=== PATIENT | female | born 1970 | race Caucasian/White ===

== ENCOUNTER → 2018-08-14 | Outpatient (CLI) | payer BC ==
--- NOTE | 2018-08-14 15:14 | KCIC ---
Bilateral digital screening mammograms with 3-D tomosynthesis: Reason for examination: Routine screening. Comparison is made to previous studies dated 05/17/2014 and 04/06/2013. Bilateral mammograms in CC and oblique projections were obtained with 2-D imaging and 3-D tomosynthesis imaging on a Siemens Inspiration unit and reviewed on the workstation. Interpretation was made with the benefit of CAD. The skin and nipples show no abnormalities. No abnormal axillary lymph nodes are seen. The breast parenchyma shows scattered fatty and fibroglandular density. (Breast density: Category B.) There continue to be small parenchymal densities in the right breast which are stable. There are no new dominant masses, suspicious calcifications or architectural distortion. Benign calcifications are present. Impression: No evidence of malignancy. Recommend routine screening. BI-RAD Category 2: Benign. "Our facility is accredited by the [employer] Mammography Program." This patient's information has been entered into a reminder system for the patient to be notified with the results of her examination and a target date for the next mammogram. Electronically signed by: Nai Jha MD (08/14/2018 3:09 PM) [id number]
== END | disposition home or self-care (01) ==
LOC: KCIC MAMMO 12:27
PROVIDERS: ATTEND Nurse Practitioner Family
DX: Z12.31 Encounter for screening mammogram for malignant neoplasm of breast (principal)
CPT/HCPCS: 77063; 77067

== ENCOUNTER 2020-07-01 19:08 | Inpatient (IN) | payer BC ==
[~2020-07-01] VITALS: Ht 157.5 cm; Wt 79.5 kg
--- NOTE | 2020-07-01 19:13 | PHYS DOC ---
Past Medical History Additional Past Medical Histor: ibs Smoking Status: Never Smoker Alcohol Use: Rarely General Adult EDM: Chief Complaint: CHEST PAIN HPI: HPI: Patient is a 50 year old female who arrives with a chief complaint of epigastric and right upper quadrant pain. Patient describes sharp, stabbing epigastric and right upper quadrant pain that radiates to her back. Pain is worse with eating and breathing. Patient describes some shortness of breath and nausea. Patient has any fever, chills. Pain currently 4 out of 10 but gets up to 8 out of 10 at times Review of Systems: Review of Systems: Constitutional: Denies fever or chills. [] Eyes: Denies change in visual acuity. [] HENT: Denies nasal congestion or sore throat. [] Respiratory: Denies cough but has had shortness of breath. [] Cardiovascular: Denies chest pain or edema. [] GI: Complains of abdominal pain with nausea but no vomiting, bloody stools or diarrhea. [] : Denies dysuria. [] Musculoskeletal: Complains of back pain but no joint pain. [] Integument: Denies rash. [] Neurologic: Denies headache, focal weakness or sensory changes. [] Endocrine: Denies polyuria or polydipsia. [] Lymphatic: Denies swollen glands. [] Psychiatric: Denies depression or anxiety. [] Heart Score: HEART Score for Chest Pain: HEART Score for Chest Pain Response (Comments) Value History Slighlty/Non-Suspicious 0 ECG Normal 0 Age >45 - < 65 1 Risk Factors No Risk Factors 0 Total 1 Risk Factors: Risk Factors: DM, Current or recent (<one month) smoker, HTN, HLP, family history of CAD, obesity. Risk Scores: Score 0 - 3: 2.5% MACE over next 6 weeks - Discharge Home Score 4 - 6: 20.3% MACE over next 6 weeks - Admit for Clinical Observation Score 7 - 10: 72.7% MACE over next 6 weeks - Early Invasive Strategies Current Medications: Current Medications Ondansetron HCl (Zofran) 4 mg 1X ONCE IVP Last administered on 07/01/20at 19:29; Start 07/01/20 at 19:30; Stop 07/01/20 at 19:31; Status DC Morphine Sulfate (Morphine Sulfate) 4 mg 1X ONCE IV Last administered on 07/01/20at 19:30; Start 07/01/20 at 19:30; Stop 07/01/20 at 19:31; Status DC Hydromorphone HCl (Dilaudid) 1 mg 1X ONCE IVP Last administered on 07/01/20at 21:13; Start 07/01/20 at 21:15; Stop 07/01/20 at 21:16; Status DC Levofloxacin/ Dextrose 150 ml @ 100 mls/hr 1X ONCE IV Last administered on 07/01/20at 21:23; Start 07/01/20 at 21:30; Stop 07/01/20 at 22:59 Levofloxacin/ Dextrose 150 ml @ As Directed STK-MED ONCE IV ; Start 07/01/20 at 21:17; Stop 07/01/20 at 21:17; Status DC Ondansetron HCl (Zofran) 4 mg PRN Q8HRS PRN IV NAUSEA/VOMITING; Start 07/01/20 at 21:30; Stop 07/02/20 at 21:29; Status UNV Morphine Sulfate (Morphine Sulfate) 4 mg PRN Q2HR PRN IV PAIN; Start 07/01/20 at 21:30; Stop 07/02/20 at 21:29; Status UNV Sodium Chloride 1,000 ml @ 125 mls/hr Q8H IV ; Start 07/01/20 at 21:30; Stop 07/02/20 at 21:29; Status UNV Physical Exam: PE: Constitutional: Well developed, well nourished, mild distress due to pain, non- toxic appearance. [] HENT: Normocephalic, atraumatic, bilateral external ears normal, no trismus, nose normal. [] Eyes: PERRLA, EOMI, conjunctiva normal, no discharge. [] Neck: Normal range of motion, no tenderness, supple, no stridor. [] Cardiovascular:Heart rate regular rhythm, no murmur [] Lungs & Thorax: Bilateral breath sounds clear to auscultation [] Abdomen: Bowel sounds normal, soft, no tenderness, no masses, no pulsatile masses. [] Skin: Warm, dry, no erythema, no rash. [] Back: No tenderness, no CVA tenderness. [] Extremities: No tenderness, no cyanosis, no clubbing, ROM intact, no edema. [] Neurologic: Alert and oriented X 3, normal motor function, normal sensory function, no focal deficits noted. [] Psychologic: Affect normal, judgement normal, mood normal. [] Current Patient Data: Labs: Laboratory Tests Test 07/01/20 19:18 07/01/20 19:50 White Blood Count 10.4 x10^3/uL Red Blood Count 4.27 x10^6/uL Hemoglobin 12.2 g/dL Hematocrit 36.3 % Mean Corpuscular Volume 85 fL Mean Corpuscular Hemoglobin 29 pg Mean Corpuscular Hemoglobin Concent 34 g/dL Red Cell Distribution Width 13.6 % Platelet Count 378 x10^3/uL Neutrophils (%) (Auto) 54 % Lymphocytes (%) (Auto) 36 % Monocytes (%) (Auto) 7 % Eosinophils (%) (Auto) 2 % Basophils (%) (Auto) 1 % Neutrophils # (Auto) 5.6 x10^3/uL Lymphocytes # (Auto) 3.7 x10^3/uL Monocytes # (Auto) 0.8 x10^3/uL Eosinophils # (Auto) 0.2 x10^3/uL Basophils # (Auto) 0.1 x10^3/uL Sodium Level 138 mmol/L Potassium Level 4.0 mmol/L Chloride Level 100 mmol/L Carbon Dioxide Level 25 mmol/L Anion Gap 13 Blood Urea Nitrogen 14 mg/dL Creatinine 0.8 mg/dL Estimated GFR (Cockcroft-Gault) 75.6 BUN/Creatinine Ratio 18 Glucose Level 130 mg/dL Calcium Level 9.4 mg/dL Total Bilirubin 0.1 mg/dL Aspartate Amino Transf (AST/SGOT) 17 U/L Alanine Aminotransferase (ALT/SGPT) 27 U/L Alkaline Phosphatase 65 U/L Troponin I Quantitative < 0.017 ng/mL Total Protein 7.5 g/dL Albumin 3.7 g/dL Albumin/Globulin Ratio 1.0 Lipase 125 U/L Urine Collection Type Unknown Urine Color Yellow Urine Clarity Cloudy Urine pH 8.0 Urine Specific [place] 1.020 Urine Protein Negative mg/dL Urine Glucose (UA) Negative mg/dL Urine Ketones (Stick) Negative mg/dL Urine Blood Negative Urine Nitrite Negative Urine Bilirubin Negative Urine Urobilinogen Dipstick 1.0 mg/dL Urine Leukocyte Esterase Small Urine RBC 0 /HPF Urine WBC 5-10 /HPF Urine Squamous Epithelial Cells Mod /LPF Urine Amorphous Sediment Present /HPF Urine Bacteria Few /HPF Current Medications Medications (Trade) Dose Ordered Sig/Pepe Route PRN Reason Start Time Stop Time Status Last Admin Dose Admin Ondansetron HCl (Zofran) 4 mg 1X ONCE IVP 07/01/20 19:30 07/01/20 19:31 DC 07/01/20 19:29 Morphine Sulfate (Morphine Sulfate) 4 mg 1X ONCE IV 07/01/20 19:30 07/01/20 19:31 DC 07/01/20 19:30 Vital Signs: Vital Signs Date Time Temp Pulse Resp B/P (MAP) Pulse Ox O2 Delivery O2 Flow Rate FiO2 07/01/20 19:18 97.9 91 22 179/92 (121) 98 Room Air 97.9 EKG: EKG: [] EKG interpreted by me normal sinus rhythm with rate 98 normal axis normal intervals normal ST segments Radiology/Procedures: Radiology/Procedures: [][address] [id number] IMAGING REPORT Signed PATIENT: BRIGID HILTON ACCOUNT: [id number] : 1970 LOCATION: ER AGE: 50 SEX: F EXAM STATUS: REG ER ORD. PHYSICIAN: MARZENA RICHARD MD REASON: epigastric pain PROCEDURE: PORTABLE CHEST 1V Exam: Chest one view INDICATION: Epigastric pain TECHNIQUE: Frontal view of the chest Comparisons: None FINDINGS: The cardiomediastinal silhouette and pulmonary vessels are within normal limits. The lung and pleural spaces are clear. IMPRESSION: No acute cardiopulmonary process. Electronically signed by: Gabriella Hall MD (07/01/2020 7:34 PM) [id number] DICTATED and SIGNED BY: GABRIELLA HALL MD DATE: 07/01/20 [id number] [id number] IMAGING REPORT Signed PATIENT: BRIGID HILTON ACCOUNT: [id number] : 1970 LOCATION: ER AGE: 50 SEX: F EXAM STATUS: REG ER ORD. PHYSICIAN: MARZENA RICHARD MD REASON: ruq pain, r/o gb-Talked to Dante at 7:41pm PROCEDURE: ABDOMEN LTD Exam: Ultrasound abdomen limited Indication: Right upper quadrant pain Technique: Real-time grayscale and color Doppler images of the right upper qu adrant were obtained by the department manager transfusion. Comparisons: None FINDINGS: Liver contour is normal. Hepatopedal flow noted in the portal vein. Increased echogenicity of the liver parenchyma. Gallbladder is distended. There is a gallstone noted at the gallbladder neck which appears fixed. No pericholecystic fluid or wall thickening. Common bile measures 7 mm in diameter. Right kidney measures 12.0 cm in length. No hydronephrosis. Visualized portions aorta and IVC are unremarkable. IMPRESSION: 1. Fixed gallstone at the gallbladder neck. Gallbladder is mildly distended without other evidence for acute cholecystitis. Findings are overall equivocal for acute cholecystitis and if further characterization is necessary HIDA scan would better evaluate. 2. No right-sided hydronephrosis. 3. Diffuse hepatic steatosis. Electronically signed by: Gabriella Hall MD (07/01/2020 9:06 PM) [id number] DICTATED and SIGNED BY: GABRIELLA HALL MD DATE: 07/01/20 [id number] 0 Course & Med Decision Making: Course & Med Decision Making Pertinent Labs and Imaging studies reviewed. (See chart for details) [] Patient reassessed at 8:25 PM with pain at 4 out of 10. Patient reassessed at 9:15 PM and was receiving her second dose of pain medicine, this time Dilaudid due to increased pain. 50-year-old female presents with right upper quadrant pain. Ultrasound reveals a gallstone in the gallbladder neck. Patient has persistent pain and ultrasound is equivocal for acute cholecystitis. Patient given dose of IV antibiotics and will be swabbed for COVID-19 for possible surgery. Patient will be admitted to Dr. Newton. A consult has been placed with Dr. De Souza. Papo Disclaimer: Papo Disclaimer: This electronic medical record was generated, in whole or in part, using a voice recognition dictation system. Departure Departure Impression: Primary Impression: Symptomatic cholelithiasis Additional Impression: Right upper quadrant pain Disposition: ADMITTED INPT THIS HOSP Admitting Physician: AGATA CABELLO) Condition: STABLE Referrals: RICHI WEST APRN (PCP) MARZENA RICHARD MD Jul 01, 2020 19:13
[2020-07-01 19:27] LABS: BASO # 0.1 x10^3/uL (0.0-0.2); BASO % 1 % (0-3); EOS # 0.2 x10^3/uL (0.0-0.7); EOS % 2 % (0-3); HEMATOCRIT 36.3 % (36.0-47.0); HEMOGLOBIN 12.2 g/dL (12.0-15.5); LYMPH # 3.7 x10^3/uL (1.0-4.8); LYMPH % 36 % (24-48); MEAN CORPUSCULAR HEMOGLOBIN 29 pg (25-35); MEAN CORPUSCULAR HGB CONC 34 g/dL (31-37); MEAN CORPUSCULAR VOLUME 85 fL (79-100); MONO # 0.8 x10^3/uL (0.0-1.1); MONO % 7 % (0-9); NEUT # 5.6 x10^3/uL (1.8-7.7); NEUT % 54 % (31-73); PLATELET COUNT 378 x10^3/uL (140-400); RED BLOOD COUNT 4.27 x10^6/uL (3.50-5.40); RED CELL DISTRIBUTION WIDTH 13.6 % (11.5-14.5); WHITE BLOOD COUNT 10.4 x10^3/uL (4.0-11.0)
[2020-07-01] MEDS ORDERED: MORPHINE SULFATE 4 MG/ML VIAL. IV ONE (19:30)
[2020-07-01] MEDS ORDERED: ONDANSETRON PF 4 MG/2 ML VIAL. IVP ONE (19:30)
[2020-07-01 19:35] LABS: CALCIUM 9.4 mg/dL (8.5-10.1); CREATININE 0.8 mg/dL (0.6-1.0); GFR 75.6
--- NOTE | 2020-07-01 19:36 | RAD ---
Exam: Chest one view INDICATION: Epigastric pain TECHNIQUE: Frontal view of the chest Comparisons: None FINDINGS: The cardiomediastinal silhouette and pulmonary vessels are within normal limits. The lung and pleural spaces are clear. IMPRESSION: No acute cardiopulmonary process. Electronically signed by: Gabriella Siddiqui MD (07/01/2020 7:34 PM) [id number]
[2020-07-01 19:41] LABS: ALBUMIN 3.7 g/dL (3.4-5.0); TOTAL BILIRUBIN 0.1 mg/dL (0.2-1.0); TOTAL PROTEIN 7.5 g/dL (6.4-8.2)
[2020-07-01 19:56] LABS: BILIRUBIN,URINE NEGATIVE (NEG); CLARITY,URINE CLOUDY; COLOR,URINE YELLOW; NITRITE,URINE NEGATIVE (NEG); PROTEIN,URINE NEGATIVE (NEG-TRACE)
[2020-07-01 20:06] LABS: AMORPHOUS SEDIMENT,UR PRESENT /HPF; BACTERIA,URINE FEW /HPF (0-FEW); RBC,URINE 0 /HPF (0-2)
--- NOTE | 2020-07-01 21:09 | RAD ---
Exam: Ultrasound abdomen limited Indication: Right upper quadrant pain Technique: Real-time grayscale and color Doppler images of the right upper quadrant were obtained by the department brim stitcher. Comparisons: None FINDINGS: Liver contour is normal. Hepatopedal flow noted in the portal vein. Increased echogenicity of the maira er parenchyma. Gallbladder is distended. There is a gallstone noted at the gallbladder neck which appears fixed. No pericholecystic fluid or wall thickening. Common bile measures 7 mm in diameter. Right kidney measures 12.0 cm in length. No hydronephrosis. Visualized portions aorta and IVC are unremarkable. IMPRESSION: 1. Fixed gallstone at the gallbladder neck. Gallbladder is mildly distended without other evidence f or acute cholecystitis. Findings are overall equivocal for acute cholecystitis and if further charact erization is necessary HIDA scan would better evaluate. 2. No right-sided hydronephrosis. 3. Diffuse hepatic steatosis. Electronically signed by: Gabriella Siddiqui MD (07/01/2020 9:06 PM) [id number]
[2020-07-01] MEDS ORDERED: HYDROmorphone 2 MG/ML VIAL IVP ONE (21:15)
[2020-07-01] MEDS: IV NORMAL SALINE 1000ML BAG 1,000 ML IV SCH (21:26)
[2020-07-01] MEDS ORDERED: ONDANSETRON PF 4 MG/2 ML VIAL. IV PRN (21:30)
[2020-07-01 23:20] VITALS: BP 159/94
[2020-07-01] MEDS: MORPHINE SULFATE 4 MG/ML VIAL. IV PRN (23:44)
[2020-07-02] MEDS ORDERED: PROCHLORPERAZINE 10 MG/2 ML VIAL. IV ONE (01:00)
[2020-07-02] MEDS: MORPHINE SULFATE 4 MG/ML VIAL. IV PRN (01:59)
[2020-07-02 03:00] VITALS: BP 138/83
[2020-07-02] MEDS: IV NORMAL SALINE 1000ML BAG 1,000 ML IV SCH ×2 (04:29→13:05)
[2020-07-02 07:00] VITALS: BP 137/84
[2020-07-02] MEDS ORDERED: PROCHLORPERAZINE 10 MG/2 ML VIAL. IV PRN (07:00)
[2020-07-02 09:59] LABS: BASO # 0.1 x10^3/uL (0.0-0.2); BASO % 1 % (0-3); EOS % 0 % (0-3); HEMOGLOBIN 12.1 g/dL (12.0-15.5); LYMPH # 1.4 x10^3/uL (1.0-4.8); LYMPH % 6 % (24-48); MEAN CORPUSCULAR HEMOGLOBIN 28 pg (25-35); MEAN CORPUSCULAR HGB CONC 33 g/dL (31-37); MEAN CORPUSCULAR VOLUME 86 fL (79-100); MONO # 0.9 x10^3/uL (0.0-1.1); MONO % 4 % (0-9); NEUT # 19.4 x10^3/uL (1.8-7.7); NEUT % 89 % (31-73); PLATELET COUNT 374 x10^3/uL (140-400); RED CELL DISTRIBUTION WIDTH 13.8 % (11.5-14.5); WHITE BLOOD COUNT 21.8 x10^3/uL (4.0-11.0)
[2020-07-02 10:21] LABS: ALBUMIN 3.4 g/dL (3.4-5.0); CALCIUM 8.7 mg/dL (8.5-10.1); CREATININE 0.5 mg/dL (0.6-1.0); GFR 130.1; POTASSIUM 4.4 mmol/L (3.5-5.1); TOTAL BILIRUBIN 0.3 mg/dL (0.2-1.0); TOTAL PROTEIN 6.9 g/dL (6.4-8.2)
[2020-07-02] MEDS ORDERED: HYDROmorphone 2 MG/ML VIAL IV PRN (10:45)
[2020-07-02] MEDS ORDERED: ZOLPIDEM 5 MG TABLET. PO PRN (10:45)
[2020-07-02] MEDS ORDERED: CALCIUM CARBONATE 500 MG TAB.CHEW PO PRN (10:45)
[2020-07-02] MEDS ORDERED: ONDANSETRON PF 4 MG/2 ML VIAL. IVP PRN (10:45)
[2020-07-02] MEDS ORDERED: MAGNESIUM HYDROXIDE 2,400 MG/30 ML ORAL.SUSP. PO PRN (10:45)
[2020-07-02] MEDS ORDERED: ACETAMINOPHEN 325 MG TABLET. PO PRN (10:45)
[2020-07-02] MEDS ORDERED: MORPHINE SULFATE 2 MG/ML VIAL. IV PRN (10:45)
[2020-07-02] MEDS ORDERED: BISACODYL 10 MG SUPP.RECT. PR PRN (10:45)
[2020-07-02] MEDS ORDERED: MAG HYDROX/ALUMINUM HYD/SIMETH 30 ML ORAL.SUSP PO PRN (10:45)
--- NOTE | 2020-07-02 10:45 | PDOC1 ---
History and Physical Date of Admission Date of Admission DATE: 07/02/20 TIME: 10:31 Identification/Chief Complaint Chief Complaint Abdominal pain Source Source: Chart review, Patient History of Present Illness History of Present Illness Patient is a 50-year-old female who presents with complaint of right upper quadrant abdominal pain since yesterday. Patient reports sharp, intermittent pain, 8/10. Pain is aggravated by eating and deep inspiration. She denies any significant relieving factors. She reports associated nausea. Ultrasound right upper quadrant obtained in ER showing fixed gallstone in gallbladder neck, mildly distended gallbladder, overall findings consistent with acute cholecystitis. Will admit patient for further medical management. Past Medical History Past Medical History IBS Past Surgical History Past Surgical History: Family History Family History Denies significant family history Social History Smoke: No ALCOHOL: occassional Drugs: None Current Problem List Problem List Problems Medical Problems: (1) Right upper quadrant pain Status: Acute (2) Symptomatic cholelithiasis Status: Acute Current Medications Current Medications Current Medications Ondansetron HCl (Zofran) 4 mg 1X ONCE IVP Last administered on 07/01/20at 19:29; Start 07/01/20 at 19:30; Stop 07/01/20 at 19:31; Status DC Morphine Sulfate (Morphine Sulfate) 4 mg 1X ONCE IV Last administered on 07/01/20at 19:30; Start 07/01/20 at 19:30; Stop 07/01/20 at 19:31; Status DC Hydromorphone HCl (Dilaudid) 1 mg 1X ONCE IVP Last administered on 07/01/20at 21:13; Start 07/01/20 at 21:15; Stop 07/01/20 at 21:16; Status DC Levofloxacin/ Dextrose 150 ml @ 100 mls/hr 1X ONCE IV Last administered on 07/01/20at 21:23; Start 07/01/20 at 21:30; Stop 07/01/20 at 22:59; Status DC Levofloxacin/ Dextrose 150 ml @ As Directed STK-MED ONCE IV ; Start 07/01/20 at 21:17; Stop 07/01/20 at 21:17; Status DC Ondansetron HCl (Zofran) 4 mg PRN Q8HRS PRN IV NAUSEA/VOMITING Last administered on 07/01/20at 21:41; Start 07/01/20 at 21:30; Stop 07/02/20 at 21:29 Morphine Sulfate (Morphine Sulfate) 4 mg PRN Q2HR PRN IV PAIN Last administered on 07/02/20at 01:59; Start 07/01/20 at 21:30; Stop 07/02/20 at 21:29 Sodium Chloride 1,000 ml @ 125 mls/hr Q8H IV Last administered on 07/02/20at 04:29; Start 07/01/20 at 21:30; Stop 07/02/20 at 21:29 Prochlorperazine Edisylate (Compazine) 10 mg 1X ONCE IV Last administered on 07/02/20at 01:24; Start 07/02/20 at 01:00; Stop 07/02/20 at 01:01; Status DC Prochlorperazine Edisylate (Compazine) 10 mg PRN Q6HRS PRN IV NAUSEA/VOMITING; Start 07/02/20 at 07:00 Allergies Allergies: Coded Allergies: Sulfa (Sulfonamide Antibiotics) (Verified Allergy, Unknown, 07/01/20) ROS Review of System GENERAL: No history of weight change, weakness or fevers. SKIN: No bruising, hair changes or rashes. EYES: No blurred, double or loss of vision. NOSE AND THROAT: No history of nosebleeds, hoarseness or sore throat. HEART: Denies chest pain, denies palpitations. LUNGS: Denies cough, hemoptysis, wheezing or shortness of breath. GASTROINTESTINAL: Abdominal pain, nausea. GENITOURINARY: Denies dysuria, frequency, urgency, hematuria. NEUROLOGIC: Denies history of numbness, tingling, tremor or weakness. PSYCHIATRIC: Denies anxiety, denies depression. ENDOCRINE: No history of heat or cold intolerance, polyuria or polydipsia. EXTREMITIES: Denies muscle weakness, joint pain, pain on walking or stiffness. Physical Exam Physical Exam General: Alert, Oriented X3, Cooperative, mild distress HEENT: PERRLA, EOMI Lungs: Clear to auscultation, Normal air movement Heart: RRR, no murmurs Cardiovascular: S1, S2 Abdomen: Right upper quadrant abdominal tenderness. Soft, normal bowel sounds. Extremities: No clubbing, No cyanosis Skin: No rashes, No significant lesion Neuro: Normal speech, Normal tone, Sensation intact Psych/Mental Status: Mental status NL, Mood NL Vitals Vitals Vital Signs Date Time Temp Pulse Resp B/P (MAP) Pulse Ox O2 Delivery O2 Flow Rate FiO2 07/02/20 07:00 98.0 115 18 137/84 (101) 94 Room Air 98.0 07/01/20 23:20 5.0 Labs Labs Laboratory Tests Test 07/01/20 19:18 07/01/20 19:50 07/01/20 21:35 07/02/20 09:31 White Blood Count 10.4 x10^3/uL (4.0-11.0) 21.8 x10^3/uL (4.0-11.0) Red Blood Count 4.27 x10^6/uL (3.50-5.40) 4.30 x10^6/uL (3.50-5.40) Hemoglobin 12.2 g/dL (12.0-15.5) 12.1 g/dL (12.0-15.5) Hematocrit 36.3 % (36.0-47.0) 37.0 % (36.0-47.0) Mean Corpuscular Volume 85 fL (79-100) 86 fL (79-100) Mean Corpuscular Hemoglobin 29 pg (25-35) 28 pg (25-35) Mean Corpuscular Hemoglobin Concent 34 g/dL (31-37) 33 g/dL (31-37) Red Cell Distribution Width 13.6 % (11.5-14.5) 13.8 % (11.5-14.5) Platelet Count 378 x10^3/uL (140-400) 374 x10^3/uL (140-400) Neutrophils (%) (Auto) 54 % (31-73) 89 % (31-73) Lymphocytes (%) (Auto) 36 % (24-48) 6 % (24-48) Monocytes (%) (Auto) 7 % (0-9) 4 % (0-9) Eosinophils (%) (Auto) 2 % (0-3) 0 % (0-3) Basophils (%) (Auto) 1 % (0-3) 1 % (0-3) Neutrophils # (Auto) 5.6 x10^3/uL (1.8-7.7) 19.4 x10^3/uL (1.8-7.7) Lymphocytes # (Auto) 3.7 x10^3/uL (1.0-4.8) 1.4 x10^3/uL (1.0-4.8) Monocytes # (Auto) 0.8 x10^3/uL (0.0-1.1) 0.9 x10^3/uL (0.0-1.1) Eosinophils # (Auto) 0.2 x10^3/uL (0.0-0.7) 0.0 x10^3/uL (0.0-0.7) Basophils # (Auto) 0.1 x10^3/uL (0.0-0.2) 0.1 x10^3/uL (0.0-0.2) Sodium Level 138 mmol/L (136-145) 134 mmol/L (136-145) Potassium Level 4.0 mmol/L (3.5-5.1) 4.4 mmol/L (3.5-5.1) Chloride Level 100 mmol/L (98-107) 99 mmol/L (98-107) Carbon Dioxide Level 25 mmol/L (21-32) 24 mmol/L (21-32) Anion Gap 13 (6-14) 11 (6-14) Blood Urea Nitrogen 14 mg/dL (7-20) 9 mg/dL (7-20) Creatinine 0.8 mg/dL (0.6-1.0) 0.5 mg/dL (0.6-1.0) Estimated GFR (Cockcroft-Gault) 75.6 130.1 BUN/Creatinine Ratio 18 (6-20) 18 (6-20) Glucose Level 130 mg/dL (70-99) 115 mg/dL (70-99) Calcium Level 9.4 mg/dL (8.5-10.1) 8.7 mg/dL (8.5-10.1) Total Bilirubin 0.1 mg/dL (0.2-1.0) 0.3 mg/dL (0.2-1.0) Aspartate Amino Transf (AST/SGOT) 17 U/L (15-37) 20 U/L (15-37) Alanine Aminotransferase (ALT/SGPT) 27 U/L (14-59) 30 U/L (14-59) Alkaline Phosphatase 65 U/L (46-116) 64 U/L (46-116) Troponin I Quantitative < 0.017 ng/mL (0.000-0.055) Total Protein 7.5 g/dL (6.4-8.2) 6.9 g/dL (6.4-8.2) Albumin 3.7 g/dL (3.4-5.0) 3.4 g/dL (3.4-5.0) Albumin/Globulin Ratio 1.0 (1.0-1.7) 1.0 (1.0-1.7) Lipase 125 U/L (73-393) 52 U/L (73-393) Urine Collection Type Unknown Urine Color Yellow Urine Clarity Cloudy Urine pH 8.0 (<5.0-8.0) Urine Specific [place] 1.020 (1.000-1.030) Urine Protein Negative mg/dL (NEG-TRACE) Urine Glucose (UA) Negative mg/dL (NEG) Urine Ketones (Stick) Negative mg/dL (NEG) Urine Blood Negative (NEG) Urine Nitrite Negative (NEG) Urine Bilirubin Negative (NEG) Urine Urobilinogen Dipstick 1.0 mg/dL (0.2 mg/dL) Urine Leukocyte Esterase Small (NEG) Urine RBC 0 /HPF (0-2) Urine WBC 5-10 /HPF (0-4) Urine Squamous Epithelial Cells Mod /LPF Urine Amorphous Sediment Present /HPF Urine Bacteria Few /HPF (0-FEW) SARS-CoV-2 Antigen (Rapid) Negative (NEGATIVE) Laboratory Tests Test 07/01/20 19:18 07/01/20 19:50 07/01/20 21:35 07/02/20 09:31 White Blood Count 10.4 x10^3/uL (4.0-11.0) 21.8 x10^3/uL (4.0-11.0) Red Blood Count 4.27 x10^6/uL (3.50-5.40) 4.30 x10^6/uL (3.50-5.40) Hemoglobin 12.2 g/dL (12.0-15.5) 12.1 g/dL (12.0-15.5) Hematocrit 36.3 % (36.0-47.0) 37.0 % (36.0-47.0) Mean Corpuscular Volume 85 fL (79-100) 86 fL (79-100) Mean Corpuscular Hemoglobin 29 pg (25-35) 28 pg (25-35) Mean Corpuscular Hemoglobin Concent 34 g/dL (31-37) 33 g/dL (31-37) Red Cell Distribution Width 13.6 % (11.5-14.5) 13.8 % (11.5-14.5) Platelet Count 378 x10^3/uL (140-400) 374 x10^3/uL (140-400) Neutrophils (%) (Auto) 54 % (31-73) 89 % (31-73) Lymphocytes (%) (Auto) 36 % (24-48) 6 % (24-48) Monocytes (%) (Auto) 7 % (0-9) 4 % (0-9) Eosinophils (%) (Auto) 2 % (0-3) 0 % (0-3) Basophils (%) (Auto) 1 % (0-3) 1 % (0-3) Neutrophils # (Auto) 5.6 x10^3/uL (1.8-7.7) 19.4 x10^3/uL (1.8-7.7) Lymphocytes # (Auto) 3.7 x10^3/uL (1.0-4.8) 1.4 x10^3/uL (1.0-4.8) Monocytes # (Auto) 0.8 x10^3/uL (0.0-1.1) 0.9 x10^3/uL (0.0-1.1) Eosinophils # (Auto) 0.2 x10^3/uL (0.0-0.7) 0.0 x10^3/uL (0.0-0.7) Basophils # (Auto) 0.1 x10^3/uL (0.0-0.2) 0.1 x10^3/uL (0.0-0.2) Sodium Level 138 mmol/L (136-145) 134 mmol/L (136-145) Potassium Level 4.0 mmol/L (3.5-5.1) 4.4 mmol/L (3.5-5.1) Chloride Level 100 mmol/L (98-107) 99 mmol/L (98-107) Carbon Dioxide Level 25 mmol/L (21-32) 24 mmol/L (21-32) Anion Gap 13 (6-14) 11 (6-14) Blood Urea Nitrogen 14 mg/dL (7-20) 9 mg/dL (7-20) Creatinine 0.8 mg/dL (0.6-1.0) 0.5 mg/dL (0.6-1.0) Estimated GFR (Cockcroft-Gault) 75.6 130.1 BUN/Creatinine Ratio 18 (6-20) 18 (6-20) Glucose Level 130 mg/dL (70-99) 115 mg/dL (70-99) Calcium Level 9.4 mg/dL (8.5-10.1) 8.7 mg/dL (8.5-10.1) Total Bilirubin 0.1 mg/dL (0.2-1.0) 0.3 mg/dL (0.2-1.0) Aspartate Amino Transf (AST/SGOT) 17 U/L (15-37) 20 U/L (15-37) Alanine Aminotransferase (ALT/SGPT) 27 U/L (14-59) 30 U/L (14-59) Alkaline Phosphatase 65 U/L (46-116) 64 U/L (46-116) Troponin I Quantitative < 0.017 ng/mL (0.000-0.055) Total Protein 7.5 g/dL (6.4-8.2) 6.9 g/dL (6.4-8.2) Albumin 3.7 g/dL (3.4-5.0) 3.4 g/dL (3.4-5.0) Albumin/Globulin Ratio 1.0 (1.0-1.7) 1.0 (1.0-1.7) Lipase 125 U/L (73-393) 52 U/L (73-393) Urine Collection Type Unknown Urine Color Yellow Urine Clarity Cloudy Urine pH 8.0 (<5.0-8.0) Urine Specific [place] 1.020 (1.000-1.030) Urine Protein Negative mg/dL (NEG-TRACE) Urine Glucose (UA) Negative mg/dL (NEG) Urine Ketones (Stick) Negative mg/dL (NEG) Urine Blood Negative (NEG) Urine Nitrite Negative (NEG) Urine Bilirubin Negative (NEG) Urine Urobilinogen Dipstick 1.0 mg/dL (0.2 mg/dL) Urine Leukocyte Esterase Small (NEG) Urine RBC 0 /HPF (0-2) Urine WBC 5-10 /HPF (0-4) Urine Squamous Epithelial Cells Mod /LPF Urine Amorphous Sediment Present /HPF Urine Bacteria Few /HPF (0-FEW) SARS-CoV-2 Antigen (Rapid) Negative (NEGATIVE) Images Images Exam: Ultrasound abdomen limited Indication: Right upper quadrant pain Technique: Real-time grayscale and color Doppler images of the right upper quadrant were obtained by the department wharf builder. Comparisons: None FINDINGS: Liver contour is normal. Hepatopedal flow noted in the portal vein. Increased echogenicity of the liver parenchyma. Gallbladder is distended. There is a gallstone noted at the gallbladder neck which appears fixed. No pericholecystic fluid or wall thickening. Common bile measures 7 mm in diameter. Right kidney measures 12.0 cm in length. No hydronephrosis. Visualized portions aorta and IVC are unremarkable. IMPRESSION: 1. Fixed gallstone at the gallbladder neck. Gallbladder is mildly distended without other evidence for acute cholecystitis. Findings are overall equivocal for acute cholecystitis and if further characterization is necessary HIDA scan would better evaluate. 2. No right-sided hydronephrosis. 3. Diffuse hepatic steatosis. VTE Prophylaxis Ordered VTE Prophylaxis Devices: No VTE Pharmacological Prophylaxi: Yes Assessment/Plan Assessment/Plan Acute cholecystitis Plan: Consult to general surgery Consult to GI; due to gallstone seen in the gallbladder neck on ultrasound, patient may benefit from HIDA scan or ERCP. She was treated with Levaquin in the ER IV pain management, antiemetics as needed IV fluids FEN - NPO PPX - Heparin FULL CODE Dispo - inpatient for above Justifications for Admission Other Justification LG HALL MD Jul 02, 2020 10:45
[2020-07-02 11:00] VITALS: BP 128/82
[2020-07-02] MEDS ORDERED: fentaNYL PF VIAL 100 MCG/2 ML VIAL IVP PRN (11:00)
[2020-07-02 12:03] LABS: % LYMPHS 7 % (24-48); % MONOS 6 % (0-10); % SEGS 87 % (35-66); PLT ESTIMATE ADEQUATE (ADEQUATE)
--- NOTE | 2020-07-02 12:41 | PDOC2 ---
CONSULT Date of Consult Date of Consult DATE: 07/02/20 TIME: 12:36 History of Present Illness Reason for Visit: 50 year old female reported to the ER with abdominal pain. Pain located in the upper mid abdomen with radiation to the back and RUQ. Pain started yesterday, and reports associated nausea and vomiting. Past Medical History Past Medical History denies Past Surgical History Past Surgical History: Social History No ALCOHOL: occassional Drugs: None Current Problem List Problem List Problems Medical Problems: (1) Right upper quadrant pain Status: Acute (2) Symptomatic cholelithiasis Status: Acute Current Medications Current Medications Current Medications Ondansetron HCl (Zofran) 4 mg 1X ONCE IVP Last administered on 07/01/20at 19:29; Start 07/01/20 at 19:30; Stop 07/01/20 at 19:31; Status DC Morphine Sulfate (Morphine Sulfate) 4 mg 1X ONCE IV Last administered on 07/01/20at 19:30; Start 07/01/20 at 19:30; Stop 07/01/20 at 19:31; Status DC Hydromorphone HCl (Dilaudid) 1 mg 1X ONCE IVP Last administered on 07/01/20at 21:13; Start 07/01/20 at 21:15; Stop 07/01/20 at 21:16; Status DC Levofloxacin/ Dextrose 150 ml @ 100 mls/hr 1X ONCE IV Last administered on 07/01/20at 21:23; Start 07/01/20 at 21:30; Stop 07/01/20 at 22:59; Status DC Levofloxacin/ Dextrose 150 ml @ As Directed STK-MED ONCE IV ; Start 07/01/20 at 21:17; Stop 07/01/20 at 21:17; Status DC Ondansetron HCl (Zofran) 4 mg PRN Q8HRS PRN IV NAUSEA/VOMITING Last administered on 07/01/20at 21:41; Start 07/01/20 at 21:30; Stop 07/02/20 at 21:29 Morphine Sulfate (Morphine Sulfate) 4 mg PRN Q2HR PRN IV PAIN Last administered on 07/02/20at 01:59; Start 07/01/20 at 21:30; Stop 07/02/20 at 21:29 Sodium Chloride 1,000 ml @ 125 mls/hr Q8H IV Last administered on 07/02/20at 04:29; Start 07/01/20 at 21:30; Stop 07/02/20 at 21:29 Prochlorperazine Edisylate (Compazine) 10 mg 1X ONCE IV Last administered on 07/02/20at 01:24; Start 07/02/20 at 01:00; Stop 07/02/20 at 01:01; Status DC Prochlorperazine Edisylate (Compazine) 10 mg PRN Q6HRS PRN IV NAUSEA/VOMITING; Start 07/02/20 at 07:00 Ondansetron HCl (Zofran) 4 mg PRN Q6HRS PRN IVP NAUSEA/VOMITING; Start 07/02/20 at 10:45 Al Hydroxide/Mg Hydroxide (Mylanta Plus Xs) 30 ml PRN Q3HRS PRN PO HEARTBURN / GAS; Start 07/02/20 at 10:45 Calcium Carbonate/ Glycine (Tums) 500 mg PRN Q3HRS PRN PO UPSET STOMACH; Start 07/02/20 at 10:45 Zolpidem Tartrate (Ambien) 5 mg PRN QHS PRN PO INSOMNIA, MAY REPEAT IN 1HR; Start 07/02/20 at 10:45 Morphine Sulfate (Morphine Sulfate) 2 mg PRN Q1HR PRN IV PAIN; Start 07/02/20 at 10:45 Hydromorphone HCl (Dilaudid) 0.4 mg PRN Q1HR PRN IV PAIN; Start 07/02/20 at 10:45 Acetaminophen (Tylenol) 650 mg PRN Q6HRS PRN PO Headaches, Temp > 101.5F; Start 07/02/20 at 10:45 Ibuprofen (Motrin) 400 mg PRN Q6HRS PRN PO MILD PAIN 1-3; Start 07/02/20 at 10:45 Magnesium Hydroxide (Milk Of Magnesia) 2,400 mg PRN Q12HR PRN PO CONSTIPATION; Start 07/02/20 at 10:45 Bisacodyl (Dulcolax Supp) 10 mg PRN DAILY PRN [place] CONSTIPATION; Start 07/02/20 at 10:45 Heparin Sodium (Porcine) (Heparin Sodium) 5,000 unit Q8HRS SQ ; Start 07/02/20 at 14:00 Fentanyl Citrate (Fentanyl 2ml Vial) 50 mcg PRN Q2HR PRN IVP PAIN; Start 07/02/20 at 11:00 Allergies Allergies: Coded Allergies: Sulfa (Sulfonamide Antibiotics) (Verified Allergy, Unknown, 07/01/20) ROS General: No: Chills, Night Sweats, Fatigue, Malaise, Appetite, Other PSYCHOLOGICAL ROS: No: Anxiety, Behavioral Disorder, Concentration difficultie, Decreased libido, Depression, Disorientation, Hallucinations, Hostility, Irritablity, Memory difficulties, Mood Swings, Obsessive thoughts, Physical abuse, Sexual abuse, Sleep disturbances, Suicidal ideation, Other Eyes: No Blurry vision, No Decreased vision, No Double vision, No Dry eyes, No Excessive tearing, No Eye Pain, No Itchy Eyes, No Loss of vision, No Photophobia, No Scotomata, No Uses contacts, No Uses glasses, No Other Respiratory: No: Cough, Hemoptysis, Orthopnea, Pleuritic Pain, Shortness of breath, SOB with excertion, Sputum Changes, Stridor, Tachypnea, Wheezing, Other Cardiovascular: No Chest Pain, No Palpitations, No Orthopnea, No Paroxysmal Noc. Dyspnea, No Edema, No Lt Headedness, No Other Gastrointestinal: Yes Vomiting, Yes Abdominal Pain Genitourinary: No Dysuria, No Frequency, No Incontinence, No Hematuria, No Retention, No Discharge, No Urgency, No Pain, No Flank Pain, No Other, No , No , No , No , No , No , No Musculoskeletal: No Gait Disturbance, No Joint Pain, No Joint Stiffness, No Joint Swelling, No Muscle Pain, No Muscular Weakness, No Pain In:, No Swelling In:, No Other Neurological: No Behavorial Changes, No Bowel/Bladder ControlChng, No Confusion, No Dizziness, No Gait Disturbance, No Headaches, No Impaired Coord/balance, No Memory Loss, No Numbness/Tingling, No Seizures, No Speech Problems, No Tremors, No Visual Changes, No Weakness, No Other Skin: No Dry Skin, No Eczema, No Hair Changes, No Lumps, No Mole Changes, No Mottling, No Nail Changes, No Pruritus, No Rash, No Skin Lesion Changes, No Other, No Acne Physical Exam General: Alert, Oriented X3, Cooperative HEENT: Atraumatic Lungs: Clear to auscultation Heart: Regular rate Abdomen: Soft (tender RUQ with palpation) Extremities: No clubbing, No cyanosis Skin: No rashes Neuro: Normal speech Vitals VITALS Vital Signs Date Time Temp Pulse Resp B/P (MAP) Pulse Ox O2 Delivery O2 Flow Rate FiO2 07/02/20 07:00 98.0 115 18 137/84 (101) 94 Room Air 98.0 07/01/20 23:20 5.0 Labs Labs Laboratory Tests Test 07/01/20 19:18 07/01/20 19:50 07/01/20 21:35 07/02/20 09:31 White Blood Count 10.4 x10^3/uL (4.0-11.0) 21.8 x10^3/uL (4.0-11.0) Red Blood Count 4.27 x10^6/uL (3.50-5.40) 4.30 x10^6/uL (3.50-5.40) Hemoglobin 12.2 g/dL (12.0-15.5) 12.1 g/dL (12.0-15.5) Hematocrit 36.3 % (36.0-47.0) 37.0 % (36.0-47.0) Mean Corpuscular Volume 85 fL (79-100) 86 fL (79-100) Mean Corpuscular Hemoglobin 29 pg (25-35) 28 pg (25-35) Mean Corpuscular Hemoglobin Concent 34 g/dL (31-37) 33 g/dL (31-37) Red Cell Distribution Width 13.6 % (11.5-14.5) 13.8 % (11.5-14.5) Platelet Count 378 x10^3/uL (140-400) 374 x10^3/uL (140-400) Neutrophils (%) (Auto) 54 % (31-73) 89 % (31-73) Lymphocytes (%) (Auto) 36 % (24-48) 6 % (24-48) Monocytes (%) (Auto) 7 % (0-9) 4 % (0-9) Eosinophils (%) (Auto) 2 % (0-3) 0 % (0-3) Basophils (%) (Auto) 1 % (0-3) 1 % (0-3) Neutrophils # (Auto) 5.6 x10^3/uL (1.8-7.7) 19.4 x10^3/uL (1.8-7.7) Lymphocytes # (Auto) 3.7 x10^3/uL (1.0-4.8) 1.4 x10^3/uL (1.0-4.8) Monocytes # (Auto) 0.8 x10^3/uL (0.0-1.1) 0.9 x10^3/uL (0.0-1.1) Eosinophils # (Auto) 0.2 x10^3/uL (0.0-0.7) 0.0 x10^3/uL (0.0-0.7) Basophils # (Auto) 0.1 x10^3/uL (0.0-0.2) 0.1 x10^3/uL (0.0-0.2) Sodium Level 138 mmol/L (136-145) 134 mmol/L (136-145) Potassium Level 4.0 mmol/L (3.5-5.1) 4.4 mmol/L (3.5-5.1) Chloride Level 100 mmol/L (98-107) 99 mmol/L (98-107) Carbon Dioxide Level 25 mmol/L (21-32) 24 mmol/L (21-32) Anion Gap 13 (6-14) 11 (6-14) Blood Urea Nitrogen 14 mg/dL (7-20) 9 mg/dL (7-20) Creatinine 0.8 mg/dL (0.6-1.0) 0.5 mg/dL (0.6-1.0) Estimated GFR (Cockcroft-Gault) 75.6 130.1 BUN/Creatinine Ratio 18 (6-20) 18 (6-20) Glucose Level 130 mg/dL (70-99) 115 mg/dL (70-99) Calcium Level 9.4 mg/dL (8.5-10.1) 8.7 mg/dL (8.5-10.1) Total Bilirubin 0.1 mg/dL (0.2-1.0) 0.3 mg/dL (0.2-1.0) Aspartate Amino Transf (AST/SGOT) 17 U/L (15-37) 20 U/L (15-37) Alanine Aminotransferase (ALT/SGPT) 27 U/L (14-59) 30 U/L (14-59) Alkaline Phosphatase 65 U/L (46-116) 64 U/L (46-116) Troponin I Quantitative < 0.017 ng/mL (0.000-0.055) Total Protein 7.5 g/dL (6.4-8.2) 6.9 g/dL (6.4-8.2) Albumin 3.7 g/dL (3.4-5.0) 3.4 g/dL (3.4-5.0) Albumin/Globulin Ratio 1.0 (1.0-1.7) 1.0 (1.0-1.7) Lipase 125 U/L (73-393) 52 U/L (73-393) Urine Collection Type Unknown Urine Color Yellow Urine Clarity Cloudy Urine pH 8.0 (<5.0-8.0) Urine Specific [place] 1.020 (1.000-1.030) Urine Protein Negative mg/dL (NEG-TRACE) Urine Glucose (UA) Negative mg/dL (NEG) Urine Ketones (Stick) Negative mg/dL (NEG) Urine Blood Negative (NEG) Urine Nitrite Negative (NEG) Urine Bilirubin Negative (NEG) Urine Urobilinogen Dipstick 1.0 mg/dL (0.2 mg/dL) Urine Leukocyte Esterase Small (NEG) Urine RBC 0 /HPF (0-2) Urine WBC 5-10 /HPF (0-4) Urine Squamous Epithelial Cells Mod /LPF Urine Amorphous Sediment Present /HPF Urine Bacteria Few /HPF (0-FEW) SARS-CoV-2 Antigen (Rapid) Negative (NEGATIVE) Segmented Neutrophils % 87 % (35-66) Lymphocytes % 7 % (24-48) Monocytes % 6 % (0-10) Platelet Estimate Adequate (ADEQUATE) Laboratory Tests Test 07/01/20 19:18 07/01/20 19:50 07/01/20 21:35 07/02/20 09:31 White Blood Count 10.4 x10^3/uL (4.0-11.0) 21.8 x10^3/uL (4.0-11.0) Red Blood Count 4.27 x10^6/uL (3.50-5.40) 4.30 x10^6/uL (3.50-5.40) Hemoglobin 12.2 g/dL (12.0-15.5) 12.1 g/dL (12.0-15.5) Hematocrit 36.3 % (36.0-47.0) 37.0 % (36.0-47.0) Mean Corpuscular Volume 85 fL (79-100) 86 fL (79-100) Mean Corpuscular Hemoglobin 29 pg (25-35) 28 pg (25-35) Mean Corpuscular Hemoglobin Concent 34 g/dL (31-37) 33 g/dL (31-37) Red Cell Distribution Width 13.6 % (11.5-14.5) 13.8 % (11.5-14.5) Platelet Count 378 x10^3/uL (140-400) 374 x10^3/uL (140-400) Neutrophils (%) (Auto) 54 % (31-73) 89 % (31-73) Lymphocytes (%) (Auto) 36 % (24-48) 6 % (24-48) Monocytes (%) (Auto) 7 % (0-9) 4 % (0-9) Eosinophils (%) (Auto) 2 % (0-3) 0 % (0-3) Basophils (%) (Auto) 1 % (0-3) 1 % (0-3) Neutrophils # (Auto) 5.6 x10^3/uL (1.8-7.7) 19.4 x10^3/uL (1.8-7.7) Lymphocytes # (Auto) 3.7 x10^3/uL (1.0-4.8) 1.4 x10^3/uL (1.0-4.8) Monocytes # (Auto) 0.8 x10^3/uL (0.0-1.1) 0.9 x10^3/uL (0.0-1.1) Eosinophils # (Auto) 0.2 x10^3/uL (0.0-0.7) 0.0 x10^3/uL (0.0-0.7) Basophils # (Auto) 0.1 x10^3/uL (0.0-0.2) 0.1 x10^3/uL (0.0-0.2) Sodium Level 138 mmol/L (136-145) 134 mmol/L (136-145) Potassium Level 4.0 mmol/L (3.5-5.1) 4.4 mmol/L (3.5-5.1) Chloride Level 100 mmol/L (98-107) 99 mmol/L (98-107) Carbon Dioxide Level 25 mmol/L (21-32) 24 mmol/L (21-32) Anion Gap 13 (6-14) 11 (6-14) Blood Urea Nitrogen 14 mg/dL (7-20) 9 mg/dL (7-20) Creatinine 0.8 mg/dL (0.6-1.0) 0.5 mg/dL (0.6-1.0) Estimated GFR (Cockcroft-Gault) 75.6 130.1 BUN/Creatinine Ratio 18 (6-20) 18 (6-20) Glucose Level 130 mg/dL (70-99) 115 mg/dL (70-99) Calcium Level 9.4 mg/dL (8.5-10.1) 8.7 mg/dL (8.5-10.1) Total Bilirubin 0.1 mg/dL (0.2-1.0) 0.3 mg/dL (0.2-1.0) Aspartate Amino Transf (AST/SGOT) 17 U/L (15-37) 20 U/L (15-37) Alanine Aminotransferase (ALT/SGPT) 27 U/L (14-59) 30 U/L (14-59) Alkaline Phosphatase 65 U/L (46-116) 64 U/L (46-116) Troponin I Quantitative < 0.017 ng/mL (0.000-0.055) Total Protein 7.5 g/dL (6.4-8.2) 6.9 g/dL (6.4-8.2) Albumin 3.7 g/dL (3.4-5.0) 3.4 g/dL (3.4-5.0) Albumin/Globulin Ratio 1.0 (1.0-1.7) 1.0 (1.0-1.7) Lipase 125 U/L (73-393) 52 U/L (73-393) Urine Collection Type Unknown Urine Color Yellow Urine Clarity Cloudy Urine pH 8.0 (<5.0-8.0) Urine Specific [place] 1.020 (1.000-1.030) Urine Protein Negative mg/dL (NEG-TRACE) Urine Glucose (UA) Negative mg/dL (NEG) Urine Ketones (Stick) Negative mg/dL (NEG) Urine Blood Negative (NEG) Urine Nitrite Negative (NEG) Urine Bilirubin Negative (NEG) Urine Urobilinogen Dipstick 1.0 mg/dL (0.2 mg/dL) Urine Leukocyte Esterase Small (NEG) Urine RBC 0 /HPF (0-2) Urine WBC 5-10 /HPF (0-4) Urine Squamous Epithelial Cells Mod /LPF Urine Amorphous Sediment Present /HPF Urine Bacteria Few /HPF (0-FEW) SARS-CoV-2 Antigen (Rapid) Negative (NEGATIVE) Segmented Neutrophils % 87 % (35-66) Lymphocytes % 7 % (24-48) Monocytes % 6 % (0-10) Platelet Estimate Adequate (ADEQUATE) Images Images Abdominal sonogram: IMPRESSION: 1. Fixed gallstone at the gallbladder neck. Gallbladder is mildly distended without other evidence for acute cholecystitis. Findings are overall equivocal for acute cholecystitis and if further characterization is necessary HIDA scan would better evaluate. 2. No right-sided hydronephrosis. 3. Diffuse hepatic steatosis. Assessment/Plan Assessment/Plan 50 year old female with RUQ pain, gallstones; recommend lap flaca; will check OR availability, likely add on in AM MARZENA KING MD Jul 02, 2020 12:41
[2020-07-02] MEDS: IBUPROFEN 400 MG TABLET. PO PRN ×2 (13:05→21:31)
[2020-07-02] MEDS: PIPERACILLIN/TAZOBACTAM 3.375 GM in IV NORMAL SALINE 50ML 50 ML IV SCH ×2 (13:58→18:00)
[2020-07-02] MEDS: HEPARIN for SUB-Q USE 5,000 UNIT/ML VIAL. SQ SCH ×2 (14:00→21:38)
[2020-07-02 15:00] VITALS: BP 154/88
[2020-07-02 19:00] VITALS: BP 143/83
[2020-07-02 23:00] VITALS: BP 150/84
[2020-07-03] VITALS (11 sets, daily range): BP systolic 118–150; BP diastolic 72–91
[2020-07-03] MEDS: PIPERACILLIN/TAZOBACTAM 3.375 GM in IV NORMAL SALINE 50ML 50 ML IV SCH ×4 (00:33→16:02)
[2020-07-03] MEDS ORDERED: fentaNYL PF VIAL 100 MCG/2 ML VIAL IV PRN ×2 (07:00)
[2020-07-03] MEDS ORDERED: MORPHINE SULFATE 2 MG/ML VIAL. IV PRN (07:00)
[2020-07-03] MEDS ORDERED: IV RINGERS,LACTATED 1000ML 1,000 ML IV SCH (07:00)
[2020-07-03] MEDS ORDERED: HYDROmorphone 2 MG/ML VIAL IV PRN (07:00)
[2020-07-03] MEDS ORDERED: SURGICEL HEMOSTAT 4X8 EACH. ONE (07:19)
[2020-07-03] MEDS ORDERED: IOHEXOL 300 MG/ML 50 ML VIAL. ONE (07:19)
[2020-07-03] MEDS ORDERED: BUPIVACAINE MPF 0.5% 30 ML VIAL. ONE (07:20)
[2020-07-03] MEDS ORDERED: ROCURONIUM 50 MG/5 ML VIAL. ONE (07:27)
[2020-07-03] MEDS ORDERED: LIDOCAINE 2% PF 5 ML VIAL. ONE (07:27)
[2020-07-03] MEDS ORDERED: PROPOFOL 10 MG/ML (20ML) VIAL. IV ONE (07:27)
[2020-07-03] MEDS ORDERED: fentaNYL PF VIAL 100 MCG/2 ML VIAL ONE (08:46)
[2020-07-03] MEDS ORDERED: ONDANSETRON PF 4 MG/2 ML VIAL. ONE (08:56)
[2020-07-03] MEDS ORDERED: DEXAMETHASONE SOD PHOS 4 MG/ML VIAL ONE (08:56)
[2020-07-03] MEDS ORDERED: PHENYLEPHRINE in 0.9% NACL PF 1 MG/10 ML SYRINGE. IV ONE (08:57)
--- NOTE | 2020-07-03 09:06 | PDOC ---
[employer] PROGRESS NOTE Date of Service DOS: DATE: 07/03/20 TIME: 09:02 Chief Complaint Chief Complaint Acute cholecystitis Plan: Consult to general surgery Consult to GI; due to gallstone seen in the gallbladder neck on ultrasound, patient may benefit from HIDA scan or ERCP. She was treated with Levaquin in the ER IV pain management, antiemetics as needed IV fluids FEN - NPO PPX - Heparin FULL CODE Dispo - inpatient for above History of Present Illness History of Present Illness Patient is a 50-year-old female who presents with complaint of right upper quadrant abdominal pain since yesterday. Patient reports sharp, intermittent pain, 8/10. Pain is aggravated by eating and deep inspiration. She denies any significant relieving factors. She reports associated nausea. Ultrasound right upper quadrant obtained in ER showing fixed gallstone in gallbladder neck, mildly distended gallbladder, overall findings consistent with acute cholecystitis. Will admit patient for further medical management. 07/03/2020 Patient had laparoscopic cholecystectomy today. She mentions some incisional tenderness, but denies any fever, nausea, vomiting, or shortness of breath. I imagine she will discharge tomorrow. Vitals/I&O Vitals/I&O: Vital Signs Date Time Temp Pulse Resp B/P (MAP) Pulse Ox O2 Delivery O2 Flow Rate FiO2 07/03/20 07:48 22 Room Air 07/03/20 07:00 98.0 112 142/80 (100) 97 98.0 I & O 07/02/20 07/02/20 07/03/20 15:00 23:00 07:00 Intake Total 440 ml 250 ml Balance 440 ml 250 ml Physical Exam General: Alert, Oriented X3, Cooperative Heart: Regular rate Lungs: Clear Abdomen: Soft (tender RUQ with palpation) Extremities: No clubbing, No cyanosis Skin: No rashes Labs Labs: Laboratory Tests Test 07/02/20 09:31 07/03/20 08:24 White Blood Count 21.8 x10^3/uL (4.0-11.0) Red Blood Count 4.30 x10^6/uL (3.50-5.40) Hemoglobin 12.1 g/dL (12.0-15.5) Hematocrit 37.0 % (36.0-47.0) Mean Corpuscular Volume 86 fL (79-100) Mean Corpuscular Hemoglobin 28 pg (25-35) Mean Corpuscular Hemoglobin Concent 33 g/dL (31-37) Red Cell Distribution Width 13.8 % (11.5-14.5) Platelet Count 374 x10^3/uL (140-400) Neutrophils (%) (Auto) 89 % (31-73) Lymphocytes (%) (Auto) 6 % (24-48) Monocytes (%) (Auto) 4 % (0-9) Eosinophils (%) (Auto) 0 % (0-3) Basophils (%) (Auto) 1 % (0-3) Neutrophils # (Auto) 19.4 x10^3/uL (1.8-7.7) Lymphocytes # (Auto) 1.4 x10^3/uL (1.0-4.8) Monocytes # (Auto) 0.9 x10^3/uL (0.0-1.1) Eosinophils # (Auto) 0.0 x10^3/uL (0.0-0.7) Basophils # (Auto) 0.1 x10^3/uL (0.0-0.2) Segmented Neutrophils % 87 % (35-66) Lymphocytes % 7 % (24-48) Monocytes % 6 % (0-10) Platelet Estimate Adequate (ADEQUATE) Sodium Level 134 mmol/L (136-145) Potassium Level 4.4 mmol/L (3.5-5.1) Chloride Level 99 mmol/L (98-107) Carbon Dioxide Level 24 mmol/L (21-32) Anion Gap 11 (6-14) Blood Urea Nitrogen 9 mg/dL (7-20) Creatinine 0.5 mg/dL (0.6-1.0) Estimated GFR (Cockcroft-Gault) 130.1 BUN/Creatinine Ratio 18 (6-20) Glucose Level 115 mg/dL (70-99) Calcium Level 8.7 mg/dL (8.5-10.1) Total Bilirubin 0.3 mg/dL (0.2-1.0) Aspartate Amino Transf (AST/SGOT) 20 U/L (15-37) Alanine Aminotransferase (ALT/SGPT) 30 U/L (14-59) Alkaline Phosphatase 64 U/L (46-116) Total Protein 6.9 g/dL (6.4-8.2) Albumin 3.4 g/dL (3.4-5.0) Albumin/Globulin Ratio 1.0 (1.0-1.7) Lipase 52 U/L (73-393) Bedside Urine HCG, Qualitative Hcg negative (Negative) Assessment and Plan Assessmemt and Plan Problems Medical Problems: (1) Right upper quadrant pain Status: Acute (2) Symptomatic cholelithiasis Status: Acute Comment Review of Relevant I have reviewed the following items alverto (where applicable) has been applied. Medications: Current Medications Medications (Trade) Dose Ordered Sig/Pepe Route PRN Reason Start Time Stop Time Status Last Admin Dose Admin Morphine Sulfate (Morphine Sulfate) 2 mg PRN Q1HR PRN IV PAIN 07/02/20 10:45 07/03/20 07:48 Ibuprofen (Motrin) 400 mg PRN Q6HRS PRN PO MILD PAIN 1-3 07/02/20 10:45 07/02/20 21:31 Heparin Sodium (Porcine) (Heparin Sodium) 5,000 unit Q8HRS SQ 07/02/20 14:00 07/03/20 01:00 DC 07/02/20 21:38 Piperacillin Sod/ Tazobactam Sod 3.375 gm/Sodium Chloride 50 ml @ 100 mls/hr Q6HRS IV 07/02/20 13:00 07/03/20 06:18 Justifications for Admission Other Justification Acute cholecystitis LG HALL MD Jul 03, 2020 09:06
[2020-07-03] MEDS ORDERED: KETOROLAC 30 MG/ML VIAL. ONE (09:32)
[2020-07-03] MEDS ORDERED: NEOSTIGMINE METHYLSULFATE 5 MG/5 ML SYRINGE. ONE (09:34)
[2020-07-03] MEDS ORDERED: GLYCOPYRROLATE 1 MG/5 ML VIAL. ONE (09:34)
[2020-07-03] MEDS ORDERED: oxyCODONE/APAP 5/325 1 TAB TABLET PO PRN ×2 (10:00→10:15)
--- NOTE | 2020-07-03 10:00 | PDOC4 ---
Operative Note Operative Note Operative Note: Preoperative Diagnosis: Calculus cholecystitis Postoperative Diagnosis: Acute calculus cholecystitis Procedure: Laparoscopic cholecystectomy Surgeons: Ap Executive Officer Special Warfare Team: Kelechi HARRIS Anesthesia: Gen. Estimated Blood Loss: 50 mL Specimen: Gallbladder to pathology Drains: None Complications: None Indications: The patient is a 50-year-old female who was admitted with abdominal pain. Her evaluation is consistent with calculus cholecystitis. Surgical treatment was offered by means of a laparoscopic cholecystectomy. The risks of surgery were discussed which include bleeding, infection, bile duct injury, bile leak, pain, the potential for additional surgeries or procedures. The patient understands and would like to proceed. Description: The patient was taken to the operating room and laid supine on the operating table. General anesthesia was performed. The abdomen was prepped with ChloraPrep and draped in a standard surgical fashion. A small infraumbilical incision was made with a scalpel. The Veress needle was then inserted and a pneumoperitoneum was then created. A 5 mm trocar was then inserted and the laparoscope was introduced. In the upper midabdomen an 11 mm trocar was inserted and in the right upper quadrant two 5 mm trocars were inserted. The gallbladder was distended consistent with hydrops and markedly inflamed showing acute cholecystitis. Approximately 50 cc of serous fluid was aspirated providing gallbladder decompression. The gallbladder was retracted cephalad. The cystic duct was dissected free from surrounding tissues. The cystic duct was quite short and we elected to forego a cholangiogram to better secure the duct. Three clips were placed on the cystic duct and it was divided. The cystic artery was then identified, dissected free, doubly clipped and divided as well. The gallbladder was then mobilized away from the liver with cautery. A Surgicel pack was placed on the gallbladder fossa to assist with hemostasis. The gallbladder was then placed in an endoscopic bag and extracted at the superior trocar site. The fascia there was closed with 0 PDS sutures. All blood and irrigation fluid was suctioned and hemostasis was good. The r emaining ports were removed and the pneumoperitoneum was relieved. The skin incisions were closed using 4-0 Monocryl suture. Steri-Strips and dressings were then applied. The patient tolerated the procedure well and was sent to the recovery room in stable condition. At the end of the case all counts were correct. MARZENA KING MD Jul 03, 2020 10:00
[2020-07-04] MEDS: PIPERACILLIN/TAZOBACTAM 3.375 GM in IV NORMAL SALINE 50ML 50 ML IV SCH ×2 (00:28→05:43)
[2020-07-04 03:00] VITALS: BP 120/75
[2020-07-04 07:00] VITALS: BP 132/78
[2020-07-04 07:42] LABS: BASO # 0.1 x10^3/uL (0.0-0.2); BASO % 0 % (0-3); EOS % 0 % (0-3); HEMATOCRIT 30.5 % (36.0-47.0); HEMOGLOBIN 10.1 g/dL (12.0-15.5); LYMPH # 3.1 x10^3/uL (1.0-4.8); LYMPH % 18 % (24-48); MEAN CORPUSCULAR HEMOGLOBIN 28 pg (25-35); MEAN CORPUSCULAR HGB CONC 33 g/dL (31-37); MEAN CORPUSCULAR VOLUME 85 fL (79-100); MONO # 0.9 x10^3/uL (0.0-1.1); MONO % 5 % (0-9); NEUT # 13.5 x10^3/uL (1.8-7.7); NEUT % 77 % (31-73); PLATELET COUNT 344 x10^3/uL (140-400); RED BLOOD COUNT 3.57 x10^6/uL (3.50-5.40); RED CELL DISTRIBUTION WIDTH 13.6 % (11.5-14.5); WHITE BLOOD COUNT 17.7 x10^3/uL (4.0-11.0)
[2020-07-04 08:05] LABS: CALCIUM 8.4 mg/dL (8.5-10.1); CREATININE 0.7 mg/dL (0.6-1.0); GFR 88.2
--- NOTE | 2020-07-04 09:36 | NUR ---
SW following. Discussed with RN, pt from home, room air, GI soft, COVID-19 negative. Pt had surgery on 07/03/2020. RN advised no SW needs and anticipates possible discharge home with self care today. SW will continue to follow.
--- NOTE | 2020-07-04 10:01 | PDOC ---
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 1001: SURGICAL PROGRESS NOTE DATE: 07/04/20 TIME: 09:59 Subjective tolerating diet no n/v feels better this AM Vital Signs Vital Signs Date Time Temp Pulse Resp B/P (MAP) Pulse Ox O2 Delivery O2 Flow Rate FiO2 07/04/20 07:00 98.2 108 18 132/78 (96) 94 Room Air 98.2 07/03/20 10:15 10 I&O Intake and Output 07/04/20 07:00 Intake Total 1805 ml Output Total 300 ml Balance 1505 ml Intake Oral 1805 ml Output Urine Total 250 ml Estimated Blood Loss 50 ml # Voids 4 General: Alert, Oriented X3, Cooperative Abdomen: Soft, Other (ND, lap dressings dry) Labs Laboratory Tests Test 07/03/20 08:24 07/04/20 06:55 Bedside Urine HCG, Qualitative Hcg negative (Negative) White Blood Count 17.7 x10^3/uL (4.0-11.0) Red Blood Count 3.57 x10^6/uL (3.50-5.40) Hemoglobin 10.1 g/dL (12.0-15.5) Hematocrit 30.5 % (36.0-47.0) Mean Corpuscular Volume 85 fL (79-100) Mean Corpuscular Hemoglobin 28 pg (25-35) Mean Corpuscular Hemoglobin Concent 33 g/dL (31-37) Red Cell Distribution Width 13.6 % (11.5-14.5) Platelet Count 344 x10^3/uL (140-400) Neutrophils (%) (Auto) 77 % (31-73) Lymphocytes (%) (Auto) 18 % (24-48) Monocytes (%) (Auto) 5 % (0-9) Eosinophils (%) (Auto) 0 % (0-3) Basophils (%) (Auto) 0 % (0-3) Neutrophils # (Auto) 13.5 x10^3/uL (1.8-7.7) Lymphocytes # (Auto) 3.1 x10^3/uL (1.0-4.8) Monocytes # (Auto) 0.9 x10^3/uL (0.0-1.1) Eosinophils # (Auto) 0.0 x10^3/uL (0.0-0.7) Basophils # (Auto) 0.1 x10^3/uL (0.0-0.2) Sodium Level 139 mmol/L (136-145) Potassium Level 3.0 mmol/L (3.5-5.1) Chloride Level 103 mmol/L (98-107) Carbon Dioxide Level 27 mmol/L (21-32) Anion Gap 9 (6-14) Blood Urea Nitrogen 9 mg/dL (7-20) Creatinine 0.7 mg/dL (0.6-1.0) Estimated GFR (Cockcroft-Gault) 88.2 Glucose Level 107 mg/dL (70-99) Calcium Level 8.4 mg/dL (8.5-10.1) Laboratory Tests Test 07/04/20 06:55 White Blood Count 17.7 x10^3/uL (4.0-11.0) Red Blood Count 3.57 x10^6/uL (3.50-5.40) Hemoglobin 10.1 g/dL (12.0-15.5) Hematocrit 30.5 % (36.0-47.0) Mean Corpuscular Volume 85 fL (79-100) Mean Corpuscular Hemoglobin 28 pg (25-35) Mean Corpuscular Hemoglobin Concent 33 g/dL (31-37) Red Cell Distribution Width 13.6 % (11.5-14.5) Platelet Count 344 x10^3/uL (140-400) Neutrophils (%) (Auto) 77 % (31-73) Lymphocytes (%) (Auto) 18 % (24-48) Monocytes (%) (Auto) 5 % (0-9) Eosinophils (%) (Auto) 0 % (0-3) Basophils (%) (Auto) 0 % (0-3) Neutrophils # (Auto) 13.5 x10^3/uL (1.8-7.7) Lymphocytes # (Auto) 3.1 x10^3/uL (1.0-4.8) Monocytes # (Auto) 0.9 x10^3/uL (0.0-1.1) Eosinophils # (Auto) 0.0 x10^3/uL (0.0-0.7) Basophils # (Auto) 0.1 x10^3/uL (0.0-0.2) Sodium Level 139 mmol/L (136-145) Potassium Level 3.0 mmol/L (3.5-5.1) Chloride Level 103 mmol/L (98-107) Carbon Dioxide Level 27 mmol/L (21-32) Anion Gap 9 (6-14) Blood Urea Nitrogen 9 mg/dL (7-20) Creatinine 0.7 mg/dL (0.6-1.0) Estimated GFR (Cockcroft-Gault) 88.2 Glucose Level 107 mg/dL (70-99) Calcium Level 8.4 mg/dL (8.5-10.1) Problem List Problems Medical Problems: (1) Right upper quadrant pain Status: Acute (2) Symptomatic cholelithiasis Status: Acute Assessment/Plan s/p flaca ok to dc home when medically ready FU 2 weeks Justicifation of Admission Dx: Justifications for Admission: Justification of Admission Dx: Yes Comments: cholecystitis MARZENA KING MD 07/04/20 1009: SURGICAL PROGRESS NOTE Assessment/Plan Agree with above JEAN-PAUL MCKEON APRN Jul 04, 2020 10:01 MARZENA KING MD Jul 04, 2020 10:09
[2020-07-04 11:00] VITALS: BP 143/84
--- NOTE | 2020-07-04 11:36 | PDOC ---
[facility] PROGRESS NOTE Date of Service DOS: DATE: 07/04/20 TIME: 11:32 Chief Complaint Chief Complaint Acute cholecystitis Abdominal pain Alcohol use IBS History of Present Illness History of Present Illness Patient is a 50-year-old female who presents with complaint of right upper quadrant abdominal pain since yesterday. Patient reports sharp, intermittent pain, 8/10. Pain is aggravated by eating and deep inspiration. She denies any significant relieving factors. She reports associated nausea. Ultrasound right upper quadrant obtained in ER showing fixed gallstone in gallbladder neck, mildly distended gallbladder, overall findings consistent with acute cholecystitis. Will admit patient for further medical management. 07/03/2020 Patient had laparoscopic cholecystectomy today. She mentions some incisional tenderness, but denies any fever, nausea, vomiting, or shortness of breath. I imagine she will discharge tomorrow. 07/04 Patient seen and examined Discussed with RN Discussed with case management Patient is comfortable Vitals/I&O Vitals/I&O: Vital Signs Date Time Temp Pulse Resp B/P (MAP) Pulse Ox O2 Delivery O2 Flow Rate FiO2 07/04/20 07:00 98.2 108 18 132/78 (96) 94 Room Air 98.2 07/03/20 10:15 10 I & O 07/03/20 07/03/20 07/04/20 15:00 23:00 07:00 Intake Total 400 ml 830 ml 575 ml Output Total 300 ml Balance 100 ml 830 ml 575 ml Physical Exam General: Alert, Oriented X3, Cooperative Heart: Regular rate, No murmurs Lungs: Clear Abdomen: Soft, Other (CDI dressings on 4 trochar sites) Extremities: No clubbing, No cyanosis Skin: No rashes, Other (No itching) Labs Labs: Laboratory Tests Test 07/04/20 06:55 White Blood Count 17.7 x10^3/uL (4.0-11.0) Red Blood Count 3.57 x10^6/uL (3.50-5.40) Hemoglobin 10.1 g/dL (12.0-15.5) Hematocrit 30.5 % (36.0-47.0) Mean Corpuscular Volume 85 fL (79-100) Mean Corpuscular Hemoglobin 28 pg (25-35) Mean Corpuscular Hemoglobin Concent 33 g/dL (31-37) Red Cell Distribution Width 13.6 % (11.5-14.5) Platelet Count 344 x10^3/uL (140-400) Neutrophils (%) (Auto) 77 % (31-73) Lymphocytes (%) (Auto) 18 % (24-48) Monocytes (%) (Auto) 5 % (0-9) Eosinophils (%) (Auto) 0 % (0-3) Basophils (%) (Auto) 0 % (0-3) Neutrophils # (Auto) 13.5 x10^3/uL (1.8-7.7) Lymphocytes # (Auto) 3.1 x10^3/uL (1.0-4.8) Monocytes # (Auto) 0.9 x10^3/uL (0.0-1.1) Eosinophils # (Auto) 0.0 x10^3/uL (0.0-0.7) Basophils # (Auto) 0.1 x10^3/uL (0.0-0.2) Sodium Level 139 mmol/L (136-145) Potassium Level 3.0 mmol/L (3.5-5.1) Chloride Level 103 mmol/L (98-107) Carbon Dioxide Level 27 mmol/L (21-32) Anion Gap 9 (6-14) Blood Urea Nitrogen 9 mg/dL (7-20) Creatinine 0.7 mg/dL (0.6-1.0) Estimated GFR (Cockcroft-Gault) 88.2 Glucose Level 107 mg/dL (70-99) Calcium Level 8.4 mg/dL (8.5-10.1) Review of Systems Review of Systems: Denies headache, changes in vision, or numbness. Denies itching or rashes Assessment and Plan Assessmemt and Plan Problems Medical Problems: (1) Right upper quadrant pain Status: Acute (2) Symptomatic cholelithiasis Status: Acute Assessment: Acute cholecystitis Abdominal pain Alcohol use IBS Plan: Discharge Comment Review of Relevant I have reviewed the following items alverto (where applicable) has been applied. Justifications for Admission Other Justification Acute cholecystitis ETELVINA DONOVAN III DO Jul 04, 2020 11:36
--- NOTE | 2020-07-04 11:40 | DS ---
DATE OF DISCHARGE: 07/04/2020 ADMISSION DIAGNOSIS: Symptomatic gallstones. DISCHARGE DIAGNOSIS: Postop day #3 laparoscopic cholecystectomy. HOSPITAL COURSE: The patient is a pleasant 50-year-old female who presented with symptomatic gallstones. She was admitted. We consulted General Surgery. She was taken for laparoscopic cholecystectomy. Today, she is doing well. PHYSICAL EXAMINATION: HEART: Tones are normal. LUNGS: Clear. ABDOMEN: Soft. She has got clean, dry and intact dressings. PLAN: We plan to discharge. DISPOSITION: Home. ACTIVITY: As tolerated. DIET: Low sodium. MEDICATIONS: Please see the MRAD. TOTAL TIME: Thirty-four minutes. ETELVINA DONOVAN DO DR: [email or web address] JOB#: [id number] / [id number]
== END 2020-07-04 12:36 | disposition home or self-care (01) | DRG 419 ==
LOC: ER 19:08 → 4 NORTH 21:24
PROVIDERS: ADMIT Internal Medicine; ATTEND Internal Medicine
PROC: 0FT44ZZ Resection of Gallbladder, Percutaneous Endoscopic Approach (ICD-10-PCS; principal; 2020-07-03 08:30)
DX: K80.00 Calculus of gallbladder with acute cholecystitis without obstruction (principal); K58.9 Irritable bowel syndrome, unspecified; K76.0 Fatty (change of) liver, not elsewhere classified; K82.8 Other specified diseases of gallbladder; Z20.828 Contact with and (suspected) exposure to other viral communicable diseases
CPT/HCPCS: 36415; 71045; 76705; 80048; 80053; 81001; 81025; 83690; 84484; 85007; 85025; 87086; 87426; 96365; 96366; 96375; 96376; J0780; J1100; J1170; J1644; J1885; J1956; J2270; J2370; J2405; J2543; J2704; J2710; J3010; J3490; J7030; Q9967; U0003; 99285-25; G0378

== ENCOUNTER → 2020-09-29 | Outpatient (CLI) | payer BC ==
--- NOTE | 2020-09-29 18:04 | KCIC ---
Bilateral digital screening mammograms with 3-D tomosynthesis: Reason for examination: Routine screening. Comparison is made to previous studies dated 08/14/2018 and 05/17/2014. Bilateral mammograms in CC and oblique projections were obtained with 2-D imaging and 3-D tomosynthes is imaging on a Siemens Inspiration unit and reviewed on the workstation. Interpretation was made wit h the benefit of CAD. The skin and nipples show no abnormalities. No abnormal axillary lymph nodes are seen. The breast par enchyma shows scattered fatty and fibroglandular density. (Breast density: Category B.) There are sma ll nodules consistent with intramammary lymph nodes which are stable. There are no new dominant horace s, suspicious calcifications or architectural distortion. Benign calcifications are present. Impression: No evidence of malignancy. Recommend routine screening. BI-RAD Category 2: Benign. "Our facility is accredited by the [employer] Mammography Program." This patient's information has been entered into a reminder system for the patient to be notified wit h the results of her examination and a target date for the next mammogram. Electronically signed by: Nai Jha MD (09/29/2020 6:01 PM) [id number]
== END ==
LOC: KCIC MAMMO 13:15
PROVIDERS: ATTEND Nurse Practitioner Family
DX: Z12.31 Encounter for screening mammogram for malignant neoplasm of breast (principal)
CPT/HCPCS: 77063; 77067